=== PATIENT | male | born 1960 | race Caucasian/White ===

== ENCOUNTER 2020-02-05 18:40 | Emergency (ER) | payer SELFPAY ==
[2020-02-05 18:40] VITALS: BP 147/95; PULSE 72; RESP 16; TEMP 36.9; O2SAT 96
--- NOTE | 2020-02-05 18:47 | ED.SKABFB ---
HPI - Skin/Abscess/Foreign Bdy General Chief complaint: Skin/Abscess/Foreign Body Stated complaint: fishing lure in R upper arm Time Seen by Provider: 02/05/20 18:47 Source: patient and RN notes reviewed Mode of arrival: ambulatory Limitations: no limitations History of Present Illness HPI narrative: patient accidentally got a fishhook stuck in his right upper arm laterally. Some of his friends tried to take it out. complaint: foreign body Onset (ago): hour(s) (2) Tetanus up to date: no Location: RUE Severity: moderate Quality: dull Pain Consistency: constant Relieving factors: none Exacerbating factors: movement Context: none Associated symptoms: denies other symptoms Treatments prior to arrival: none Related Data Home Medications Medication Instructions Recorded Confirmed aspirin 81 mg tablet,delayed 81 mg PO DAILY 04/11/19 02/05/20 release atorvastatin 40 mg tablet 40 mg PO DAILY 04/11/19 02/05/20 atenolol 100 mg PO DAILY 02/05/20 02/05/20 lisinopril 40 mg PO DAILY 02/05/20 02/05/20 Allergies Allergy/AdvReac Type Severity Reaction Status Date / Time No Known Allergies Allergy Mild Verified 11/22/19 08:42 Review of Systems Review of Systems: All systems reviewed & are unremarkable except as noted in HPI and below PMFSH Past Medical History Medical History Bilateral chronic knee pain CAD (coronary artery disease) Erectile dysfunction Former cigarette smoker HTN (hypertension) Hyperlipidemia IBS (irritable bowel syndrome) Joint effusion of knee Osteoarthritis of knees, bilateral Tobacco dependence Surgical History Surgical History History of arthroscopy of left knee History of arthroscopy of right knee S/P CABG x 4 (~02/2018) Family History Family History Mother No problems noted. Father No problems noted. Social History Social History Years smoked: 25 Smoking status: Current every day smoker Tobacco type: cigarettes Additional smoking assessment comments: He is in the process of quitting. Using Chantix. Alcohol intake: never Substance use: never Additional occupation/education comments: [employer] Gender identity (if verbalized by the patient): Male Spiritual care concerns: No Exam Eyes: Conjunctivae: conjunctivae normal Pupils: Equal, round and reactive pupils present Neck: Neck: normal visual inspection Resp: Effort & Inspection: normal respiratory effort Auscultation: clear to auscultation bilaterally Cardio: Rate: regular rate Rhythm: regular rhythm GI: Auscultation: normal bowel sounds Back/Spine/Pelvis: Cervical Spine: cervical ROM normal Thoracic/Lumbar Spine: thoraco-lumbar ROM normal Skin: General skin exam: normal color Neuro: General: patient oriented x3 and moves all extremities Extrem: Right upper extremity: shoulder/upper arm tenderness ( Lateral soft tissue) and foreign body upper arm mid lateral single ( fishhook) Psych: Appearance: grossly normal and well kempt Mental Status: mental status grossly normal Affect: normal affect Attitude: cooperative Thought content: Yes Normal thought content present Course Vital Signs Vital signs: Vital Signs Temperature 36.9 C 02/05/20 18:40 Pulse Rate 72 02/05/20 18:40 Respiratory Rate 16 02/05/20 18:40 Blood Pressure 147/95 H 02/05/20 18:40 Pulse Oximetry 96 02/05/20 18:40 Temperature 36.9 C 02/05/20 18:40 Pulse Rate 72 02/05/20 18:40 Respiratory Rate 16 02/05/20 19:25 Blood Pressure 147/95 H 02/05/20 18:40 Pulse Oximetry 96 02/05/20 18:40 Procedures Foreign Body Removal Foreign Body #1: Foreign Body Removal Date: 02/05/20 Foreign Body Removal Time: 19:07 Site: right Description of foreign body: fish
[2020-02-05] MEDS: TETANUS,DIPHTHERIA,AC PERTUSSIS ADULT 0.5 ML (ADACEL) IM (18:53)
[2020-02-05] MEDS: CEPHALEXIN 500 MG CAPSULE PO (19:18)
[2020-02-05 19:25] VITALS: RESP 16
== END 2020-02-05 19:25 | disposition home or self-care (01) ==
PROVIDERS: Emergency Provider Emergency Medicine; PCP Family Medicine
DX: S40.851A Superficial foreign body of right upper arm, initial encounter (principal)
CPT/HCPCS: 90471; 90715; 99283; A9270

== ENCOUNTER 2020-09-03 10:50 | Outpatient (CLI) | payer BC, SELFPAY ==
[2020-09-05 19:38] LABS: PSA, Free 0.15 ng/mL; PSA, Total 0.4 ng/mL (<=4.0)
== END 2020-09-03 10:51 | disposition home or self-care (01) ==
LOC: CHSLAB 10:52
PROVIDERS: PCP Family Medicine; Visit Provider Surgery
DX: R30.9 Painful micturition, unspecified (principal); Z98.890 Other specified postprocedural states; Z90.79 Acquired absence of other genital organ(s)
CPT/HCPCS: 36415; 84153; 84154

== ENCOUNTER 2020-09-04 13:18 | Outpatient (RCR) | payer BC, SELFPAY ==
--- NOTE | 2020-09-04 13:15 | PTOPEVAL ---
Thank you for referring Sidra Huitron to [facility].? The patient is scheduled to be seen for therapy? __2__x/week for 12 weeks. Please review, sign, date and return this plan of care SANTIAGO. I agree with and certify that the following plan of care is medically necessary. Referring Physician Date Admitting Provider: Attending Provider: Grady Worrell, Referring Provider: *PT Outpatient Evaluation Start: 09/04/20 12:25 Freq: Status: Active Protocol: Document 09/04/20 12:25 JAN (Rec: 09/04/20 13:13 JAN [id number]) Therapy Assessment Status Assessment Status Assessment Status Evaluation Evaluation Information Problem Diagnosis left TKA Onset 08/13/20 Subjective Information Pt. reports that he underwent Query Text:As Reported By Patient/ left TKA on 08/13/20. He states Family that he returned home the next day. He states that he has not been doing any therapy , with exception of exercises that he got in the hospital. He reports that he does have pain espeically with activty. He states that current pain is 5/10. 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 Pain Assessment Pain Scale Pain Scale Used Numeric (1 - 10) Self Report Pain Assessment Left Knee(s) Reported Pain Level 5 Pain Description Aching Pain Frequency Continuous Pain Score Pain Score 5: Self Report Interventions Used Interventions Used By Clinicians Exercise Lower Extremity Range of Motion General Lower Extremity Range of Motion Gross Lower Extremity Range of Motion 2-90 left knee AROM Comments Lower Extremity Muscle Strength Testing General Lower Extremity Strength Gross Lower Extremity Strength right hip flexion 5/5 left hip flexion 4/5 right knee flexion 5/5 left knee flexion 4/5 right knee extension 5/5 left knee extension 4/5 Extremity Circumference Assessment Circumference Assessment Location Left Body Part Knee Site Descriptor ([place]) joint line Circumference (cm) 52 Noninvolved Side Circumference (cm) 47 Gait Assessment Gait Assessment Additional Ambulation Comments Pt. ambulates
--- NOTE | 2020-10-31 13:33 | PCPTNOTE ---
Mr. Huitron attended a total of 3 treatment sessions from 09/04/20 to 09/13/20. He has failed to return to the clinic and will be discharged from our care at this time. Daniel La MPT
== END 2020-09-13 09:44 | disposition home or self-care (01) ==
LOC: CHSPT 13:18
PROVIDERS: Visit Provider Orthopaedic Surgery
DX: Z96.652 Presence of left artificial knee joint (principal)
CPT/HCPCS: 97110; 97161

== ENCOUNTER 2020-10-12 07:25 | Outpatient (CLI) | payer BC, SELFPAY ==
--- NOTE | ~2020-10-12 | MR_ITS ---
EXAMINATION: MR cervical spine wo con DATE: 10/12/2020 08:50 INDICATION: Cervical radiculopathy. TECHNIQUE: Magnetic resonance imaging (MRI) of the cervical spine was performed without intravenous c ontrast. Sequences included sagittal T2-weighted FSE, sagittal STIR FSE, sagittal T2-weighted FS FSE, sagittal T1-weighted FSE, axial MERGE, and axial T2-weighted FSE. COMPARISON: None FINDINGS: There is 6 degrees levocurvature of cervical spine. Vertebral body heights are normal. Ther e is 2 mm anterolisthesis of C2 on C3 and 3 mm anterolisthesis of C4 on C5 and C7 on T1. There are ch anges of anterior fusion procedure at C5-C6 with healed interbody bone graft and anterior plate and s crews. There is moderately decreased disc at C3-C4 and mildly decreased disc height at C7-T1. The fol lowing disc levels are specifically discussed: C2-C3: The disc does not extend beyond the endplate margin. There is no uncovertebral joint osteoarth ritis. There is severe bilateral facet joint osteoarthritis. There is mild bilateral neural foraminal stenosis. There is no central canal stenosis. C3-C4: The disc is bulging. There is severe bilateral uncovertebral joint osteoarthritis. There is se alan right and mild left facet joint osteoarthritis. There is moderate bilateral neural foraminal tara nosis. There is mild central canal stenosis with ventral indentation of spinal cord. C4-C5: The disc does not extend beyond the endplate margin. There is severe bilateral uncovertebral j oint osteoarthritis. There is severe bilateral facet joint osteoarthritis. There is moderate bilatera l neural foraminal stenosis. There is mild central canal stenosis. C5-C6: There is mild bilateral uncovertebral joint hypertrophy. There is mild left facet joint hypert rophy. There is mild left neural foraminal stenosis. There is no central canal stenosis. C6-C7: The disc is bulging. There is mild right and moderate left uncovertebral joint osteoarthritis. There is mild bilateral facet joint osteoarthritis. There is mild right and moderate left neural for aminal stenosis. There is mild central canal stenosis. C7-T1: The disc is bulging. There is mild right and moderate left uncovertebral joint osteoarthritis. There is severe bilateral facet joint osteoarthritis. There is moderate bilateral neural foraminal s tenosis. There is mild central canal stenosis. IMPRESSION: 1. Moderate cervical spondylosis. 2. Anterior fusion procedure at C5-C6. Reviewed, dictated and finalized at location A.
== END 2020-10-12 07:26 | disposition home or self-care (01) ==
LOC: CHSIMG 07:27
PROVIDERS: PCP Family Medicine; Visit Provider Family Medicine
DX: M54.12 Radiculopathy, cervical region (principal); M54.2 Cervicalgia
CPT/HCPCS: 72141

== ENCOUNTER 2020-10-26 09:41 | Outpatient (CLI) | payer BC, SELFPAY ==
--- NOTE | ~2020-10-26 | MR_ITS ---
EXAMINATION: MR lumbar spine wo con DATE: 10/26/2020 10:38 INDICATION: Lumbago. TECHNIQUE: Magnetic resonance imaging (MRI) of the lumbar spine was performed without intravenous con trast. Sequences included sagittal T2-weighted FSE, sagittal T2-weighted FS FSE, sagittal T1-weighted FSE, and axial T2-weighted FSE. COMPARISON: None FINDINGS: There is 9 degrees levocurvature of lumbar spine. There is 4 mm retrolisthesis of L3 on L4 and 4 mm anterolisthesis of L4 on L5 and L5 on S1. Vertebral body heights are normal. There is mildly decreased disc height at L2-L3, severely decreased disc height at L3-L4, mildly decreased disc heigh t at L4-L5, and moderately decreased disc height at L5-S1. The distal spinal cord signal intensity is normal. The conus medullaris is at L1-L2. There is 11 mm cyst in right kidney. The following disc le vels are specifically discussed: L1-L2: The disc does not extend beyond the endplate margin. There is severe right and moderate left f acet joint osteoarthritis. There is no neural foraminal stenosis. There is no central canal stenosis. L2-L3: The disc is bulging and has an annular fissure. There is mild bilateral facet joint osteoarthr itis. There is moderate bilateral neural foraminal stenosis. There is mild central canal stenosis. L3-L4: The disc is bulging with superimposed right subarticular zone extrusion with 16 mm inferior ex tension and mass effect on right L4 nerve root in right lateral recess. There is severe bilateral fac et joint osteoarthritis. There is moderate bilateral neural foraminal stenosis. There is moderate merced tral canal stenosis. L4-L5: The disc is bulging and has an annular fissure. There is severe bilateral facet joint osteoart hritis. There is moderate bilateral neural foraminal stenosis. There is moderate central canal stenos is. L5-S1: The disc is bulging and has an annular fissure. There is severe bilateral facet joint osteoart hritis. There is moderate bilateral neural foraminal stenosis. There is mild central canal stenosis. IMPRESSION: 1. Severe lumbar spondylosis. Reviewed, dictated and finalized at location B.
== END 2020-10-26 09:42 | disposition home or self-care (01) ==
LOC: CHSIMG 09:43
PROVIDERS: PCP Family Medicine; Visit Provider Nurse Practitioner Family
DX: M54.5 Low back pain (principal); M54.16 Radiculopathy, lumbar region
CPT/HCPCS: 72148

== ENCOUNTER 2020-11-23 13:01 | Emergency (ER) | payer BC, SELFPAY ==
--- NOTE | 2020-11-23 13:07 | ED.EXTPRO ---
HPI - Extremity Problem General Chief complaint: Extremity Injury, Lower Stated complaint: R knee injury Related Data Home Medications Medication Instructions Recorded Confirmed aspirin 81 mg tablet,delayed 81 mg PO DAILY 04/11/19 10/04/20 release atorvastatin 40 mg tablet 40 mg PO DAILY 04/11/19 10/04/20 metoprolol succinate 50 mg 50 mg PO DAILY 02/26/20 10/04/20 tablet,extended release 24 hr oxycodone-acetaminophen 5 mg-325 1 tablet PO Q6H PRN tablet 08/28/20 10/04/20 mg tablet celecoxib 100 mg capsule 100 mg PO DAILY 08/30/20 10/04/20 Allergies Allergy/AdvReac Type Severity Reaction Status Date / Time No Known Allergies Allergy Mild Verified 10/04/20 14:52 [facility] Past Medical History Medical History Bilateral chronic knee pain CAD (coronary artery disease) Cervical pain Cervical radiculopathy Erectile dysfunction Former cigarette smoker HTN (hypertension) Hyperlipidemia IBS (irritable bowel syndrome) Joint effusion of knee Osteoarthritis of knees, bilateral RLQ abdominal pain Sciatica Tobacco dependence Surgical History Surgical History History of arthroscopy of left knee History of arthroscopy of right knee Right inguinal hernia S/P CABG x 4 (~02/2018) Status post cervical discectomy Family History Family History Mother No problems noted. Father Acute myocardial infarction Sibling CAD (coronary artery disease) Social History Social History Smoking packs per day: 1.5 Smoking cigarettes per day: 30.0 Years smoked: 25 Smoking pack-years: 37.50 Smoking status: Former smoker Tobacco type: cigarettes Additional smoking assessment comments: He is in the process of quitting. Using Chantix. Alcohol intake: never Substance use: never Additional occupation/education comments: [employer] Gender identity (if verbalized by the patient): Male Spiritual care concerns: No Discharge Plan Discharge Prescriptions: No Action celecoxib [Celebrex] 100 mg capsule 100 mg PO DAILY RF: 0 aspirin [Adult Low Dose Aspirin] 81 mg tablet,delayed release (DR/EC) 81 mg PO DAILY RF: 0 atorvastatin 40 mg tablet 40 mg PO DAILY RF: 0 oxycodone-acetaminophen 5-325 mg tablet 1 tablet PO Q6H PRNRF: 0 metoprolol succinate 50 mg tablet extended release 24 hr 50 mg PO DAILY RF: 0 diclofenac sodium 75 mg tablet,delayed release (DR/EC) 75 mg PO BID Qty: 60 RF: 3 lisinopril 20 mg tablet See Rx Instructions .ROUTE .COMPLEX Qty: 90 RF: 1 prednisone 20 mg tablet 40 mg PO DAILY Qty: 10 RF: 0 tadalafil 20 mg tablet 20 mg PO DAILY PRN (Reason: sexual activity) Qty: 10 RF: 3
--- NOTE | 2020-11-23 13:27 | ED.LOWEXIN ---
HPI - Extremity Injury (Lower) General Chief Complaint: Extremity Injury, Lower Stated Complaint: R knee injury Time Seen by Provider: 11/23/20 13:27 Source: patient and RN notes reviewed Mode of arrival: ambulatory Limitations: no limitations History of Present Illness complaint: knee injury Onset (ago): hour(s) (2) Injury: Right: knee Type of Injury: inversion Place: work Severity: severe Severity scale (1-10): 8 Relieving factors: nothing Exacerbating factors: weight bearing, movement and palpation Context: walking Associated symptoms: swelling, able to partially bear weight and ambulatory (limping) Other symptoms: none Related Data Home Medications Medication Instructions Recorded Confirmed aspirin 81 mg tablet,delayed 81 mg PO DAILY 04/11/19 11/23/20 release atorvastatin 40 mg tablet 40 mg PO DAILY 04/11/19 11/23/20 celecoxib 100 mg capsule 100 mg PO DAILY 08/30/20 11/23/20 lisinopril 20 mg PO DAILY 11/23/20 Allergies Allergy/AdvReac Type Severity Reaction Status Date / Time No Known Allergies Allergy Mild Verified 10/04/20 14:52 Review of Systems Review of Systems: All systems reviewed & are unremarkable except as noted in HPI and below PMFSH Past Medical History Medical History Bilateral chronic knee pain CAD (coronary artery disease) Cervical pain Cervical radiculopathy Erectile dysfunction Former cigarette smoker HTN (hypertension) Hyperlipidemia IBS (irritable bowel syndrome) Joint effusion of knee Osteoarthritis of knees, bilateral RLQ abdominal pain Sciatica Tobacco dependence Surgical History Surgical History History of arthroscopy of left knee History of arthroscopy of right knee Right inguinal hernia S/P CABG x 4 (~02/2018) Status post cervical discectomy Family History Family History Mother No problems noted. Father Acute myocardial infarction Sibling CAD (coronary artery disease) Social History Social History Smoking packs per day: 1.5 Smoking cigarettes per day: 30.0 Years smoked: 25 Smoking pack-years: 37.50 Smoking status: Former smoker Tobacco type: cigarettes Additional smoking assessment comments: He is in the process of quitting. Using Chantix. Alcohol intake: never Substance use: never Additional occupation/education comments: [employer] Gender identity (if verbalized by the patient): Male Spiritual care concerns: No Exam Const: General: healthy appearing and no acute distress Nutritional Appearance: well nourished Orientation/consciousness: patient oriented x3 HENMT: Head: normal to inspection Ears: external ears normal Eyes: General: appearance normal, both eyes and all related structures Conjunctivae: conjunctivae normal Pupils: Equal, round and reactive pupils present EOM: EOMs intact bilaterally Neck: Neck: normal visual inspection Resp: Effort & Inspection: normal respiratory effort Auscultation: clear to auscultation bilaterally Cardio: Rate: regular rate Rhythm: regular rhythm GI: GI Palp: Yes Soft to palpation and No Tenderness to palpation present (GI) Auscultation: normal bowel sounds Back/Spine/Pelvis: Cervical Spine: cervical ROM normal Thoracic/Lumbar Spine: thoraco-lumbar ROM normal Skin: General skin exam: normal color Rashes: no rashes Neuro: General: patient oriented x3, moves all extremities and no focal motor deficits Speech: normal speech Extrem: Right lower extremity: knee Details: tenderness Location: of the medial joint line, swelling Location: of the proximal fibula, knee ligament exam normal Details: anterior drawer test normal, valgus stress test normal, varus stress test normal and Luis?s test normal, Lorena's Test Details: positive medially and crepitus; no unusual
[2020-11-23 13:30] VITALS: BP 146/91; PULSE 74; RESP 20; TEMP 36.9; O2SAT 97
[2020-11-23] MEDS: LIDOCAINE HCL 1% LOCAL INJ 20 ML VIAL 5 ML XX (13:51)
[2020-11-23] MEDS: TRIAMCINOLONE ACET INJ 40 MG/ML VIAL I-ARTICULR (13:51)
[2020-11-23 14:06] VITALS: BP 148/91; PULSE 74; RESP 20; TEMP 36.6; O2SAT 97
== END 2020-11-23 14:08 | disposition home or self-care (01) ==
PROVIDERS: Emergency Provider Emergency Medicine; PCP Family Medicine
DX: S83.91XA Sprain of unspecified site of right knee, initial encounter (principal); M17.11 Unilateral primary osteoarthritis, right knee
CPT/HCPCS: 20610; 96374; 99283; 99284; J3301

== ENCOUNTER 2021-01-27 15:24 | Outpatient (RCR) | payer BC, SELFPAY ==
--- NOTE | 2021-01-27 15:54 | PTOPEVAL ---
Thank you for referring Sidra Huitron to [facility].? The patient is scheduled to be seen for therapy? __2__x/week for 8 visits. Please review, sign, date and return this plan of care SANTIAGO. I agree with and certify that the following plan of care is medically necessary. Referring Physician Date Admitting Provider: Attending Provider: Grady Worrell, Referring Provider: *PT Outpatient Evaluation Start: 01/27/21 14:40 Freq: Status: Active Protocol: Document 01/27/21 15:12 JAN (Rec: 01/27/21 15:54 JAN [id number]) Therapy Assessment Status Assessment Status Assessment Status Evaluation Evaluation Information Problem Diagnosis s/p right TKA Onset 01/08/21 Subjective Information Pt. reports that he underwent Query Text:As Reported By Patient/ right TKA on 01/08/21. He Family states that he has been walking and using a cpm for exercise. He states that he has alot pain and swelling in the leg. 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 He has returned to driving short distances. He states that he is having trouble with sleeping at night. He reports that his goal is to reduce his right knee pain and reduce his pain. Prior Level of Function Activity Level (Last 3 Months) Occupation concrete work Hand Dominance Right Activity of Daily Living Ability Independent Indoor/Home Mobility Independent Community Mobility Independent Stairs Ability Independent Functional Cognition (Planning, Shopping Independent , Taking Medications) Cooking Yes Cleaning Yes Laundry Yes Shopping Yes Driving Yes Pain Assessment Timing of Pain Assessment Timing of Pain Assessment Pre-Treatment Pain Scale Pain Scale Used Numeric (1 - 10) Self Report Pain Assessment Right Knee(s) Reported Pain Level 7 Pain Description Aching Pain Score Pain Score 7: Self Report Interventions Used Interventions Used By Clinicians Compression Pump,Exercise Lower Extremity Range of Motion General Lower Extremity Range of Motion Gross Lower Extremity Range of Motion -right knee AROM 3-95 degrees Comments -left knee AROM 0-121 degrees
== END 2021-01-27 16:30 | disposition home or self-care (01) ==
LOC: CHSPT 15:24
PROVIDERS: PCP Family Medicine; Visit Provider Orthopaedic Surgery
DX: Z96.651 Presence of right artificial knee joint (principal)
CPT/HCPCS: 97110; 97161

== ENCOUNTER 2021-05-14 14:34 | Outpatient (CLI) | payer BC, SELFPAY ==
[2021-05-14 15:16] LABS: SARS-CoV-2 Ag Negative (Negative)
[2021-05-14 15:16] LABS: Influenza Control Valid (Valid)
== END 2021-05-14 14:35 | disposition home or self-care (01) ==
PROVIDERS: PCP Nurse Practitioner Family; Visit Provider Nurse Practitioner Family
DX: J06.9 Acute upper respiratory infection, unspecified (principal); Z20.822 Contact with and (suspected) exposure to COVID-19
CPT/HCPCS: 87426; 87804; C9803

== ENCOUNTER 2021-05-19 11:25 | Outpatient (CLI) | payer BC, SELFPAY ==
--- NOTE | 2021-05-19 11:41 | ECG_ITS ---
Measurements Intervals [place] Rate: 78 P: 48 MI: 173 QRS: 76 QRSD: 84 T: 69 QT: 342 QTc: 390 Interpretive Statements SINUS RHYTHM NORMAL ECG Electronically Signed On 05-19-2021 12:12:31 [employer] by Jonatan Robles D.O.
[2021-05-19 11:57] LABS: Basophils Absolute Auto 0.03 K/mm3 (0.00-0.10); Basophils Percent Auto 0.5 % (0.0-1.0); Eosinophils Absolute Auto 0.07 K/mm3 (0.02-0.50); Eosinophils Percent Auto 1.1 % (1.0-6.0); Hematocrit 35.9 % (40.0-54.0); Hemoglobin 12.5 g/dL (14.0-18.0); Immature Granulocyte Absolute 0.01 K/mm3 (0.00-0.00); Immature Granulocyte Percent A 0.2 % (0.0-0.0); Lymphocytes Absolute Auto 1.47 K/mm3 (1.10-4.50); Lymphocytes Percent Auto 24.1 % (18.0-42.0); Mean Corpuscular HGB Conc 34.8 g/dL (32.0-36.0); Mean Corpuscular Hemoglobin 30.4 pg (27.0-31.0); Mean Corpuscular Volume 87.3 fL (78.0-102.0); Mean Platelet Volume 10.1 fl (8.7-11.0); Monocytes Absolute Auto 0.47 K/mm3 (0.10-0.90); Monocytes Percent Auto 7.7 % (2.0-11.0); Neutrophils Percent Auto 66.4 % (50.0-70.0); Platelet Count Result 197 K/mm3 (150-420); Red Blood Count 4.11 M/mm3 (4.70-6.10); Red Cell Distribution Width 12.3 % (11.6-14.4); White Blood Count 6.1 K/mm3 (4.8-10.8)
[2021-05-19 12:10] LABS: Anion Gap 10 mmol/L (8-16); Blood Urea Nitrogen 22 mg/dL (7-18); Calcium 9.3 mg/dL (8.5-10.1); Carbon Dioxide 29 mmol/L (21-32); Chloride 101 mmol/L (98-108); Estimated Glomerular Filt Rate > 60; Glucose 85 mg/dL (70-99); Osmolality Calculated 292 mOsm/kg (285-295); Potassium 4.3 mmol/L (3.5-5.1); Sodium 140 mmol/L (136-145)
== END 2021-05-19 11:26 | disposition home or self-care (01) ==
LOC: CHSIMG 11:27
PROVIDERS: PCP Family Medicine; Visit Provider Family Medicine
DX: R03.0 Elevated blood-pressure reading, without diagnosis of hypertension (principal)
CPT/HCPCS: 36415; 80048; 85025; 93005

== ENCOUNTER 2021-05-20 16:41 | Emergency (ER) | payer BC, SELFPAY ==
--- NOTE | ~2021-05-20 | XR_ITS ---
XR knee RT 3V 05/20/2021 18:10 Indication: Right knee pain Procedure: 4 views right knee Comparison: Comparison to multiple prior studies sequentially, with oldest reviewed study dated 02/2010. Findings: There is a right total knee arthroplasty. Prosthesis well seated. There is a small joint ef fusion. No acute fracture or traumatic malalignment. Impression: 1: No acute fracture. 2: Small joint effusion. Reviewed, dictated and finalized at location A. [employer] Impression: 1: No acute fracture. 2: Small joint effusion.
[2021-05-20 17:00] VITALS: BP 109/60; PULSE 85; RESP 20; TEMP 36.8; O2SAT 98
--- NOTE | 2021-05-20 17:19 | ED.EXTPRO ---
HPI - Extremity Problem General Chief complaint: Extremity Problem,Nontraumatic Stated complaint: Rt knee pain Time Seen by Provider: 05/20/21 17:19 Source: patient Mode of arrival: ambulatory Limitations: no limitations History of Present Illness HPI Narrative: 60 year old man who is 4 months status post right TKA comes in today complaining of knee pain and swelling that started at work after he twisted his knee. Patient states that is painful to walk on but he has had no locking or giving way. He denies any distal numbness or tingling. He denies prior injuries to his knee. Complaint: joint swelling and joint paint Onset (ago): hour(s) (3) Pain Consistency: constant Location: right and knee Severity scale (1-10): 7 Quality: aching and sharp Radiation: none Relieving factors: rest Exacerbating factors: weight bearing, walking and palpation Associated symptoms: denies other symptoms Related Data Home Medications Medication Instructions Recorded Confirmed aspirin 81 mg tablet,delayed 81 mg PO DAILY 04/11/19 05/20/21 release atorvastatin 40 mg tablet 40 mg PO DAILY 04/11/19 05/20/21 Allergies Allergy/AdvReac Type Severity Reaction Status Date / Time No Known Allergies Allergy Mild Verified 12/27/20 09:57 Review of Systems Review of Systems: All systems reviewed & are unremarkable except as noted in HPI and below Constitutional: Constitutional: Denies chills and Denies fever(s) ENT: Denies nasal congestion and Denies sore throat Cardiovascular: Cardiovascular: Denies chest pain Respiratory: Respiratory: Denies cough and Denies dyspnea Gastrointestinal: Gastrointestinal: Denies nausea and Denies vomiting Musculoskeletal: Musculoskeletal: Reports as per HPI, Reports arthralgias and Reports joint swelling Integumentary/Breasts: Skin/Breast: Denies pruritus, Denies erythema and Denies rash Neurologic: Denies dizziness and Denies focal weakness PMFSH Past Medical History Medical History Bilateral chronic knee pain CAD (coronary artery disease) Cervical pain Cervical radiculopathy Erectile dysfunction Former cigarette smoker HTN (hypertension) Hyperlipidemia IBS (irritable bowel syndrome) Joint effusion of knee Osteoarthritis of knees, bilateral RLQ abdominal pain Sciatica Tobacco dependence Surgical History Surgical History History of arthroscopy of left knee History of arthroscopy of right knee Right inguinal hernia S/P CABG x 4 (~02/2018) Status post cervical discectomy Family History Family History Mother No problems noted. Father Acute myocardial infarction Sibling CAD (coronary artery disease) Social History Social History Smoking packs per day: 1.5 Smoking cigarettes per day: 30.0 Years smoked: 25 Smoking pack-years: 37.50 Smoking status: Former smoker Tobacco type: cigarettes Additional smoking assessment comments: He is in the process of quitting. Using Chantix. Alcohol intake: never Substance use: never Additional occupation/education comments: [employer] Gender identity (if verbalized by the patient): Male Sexual Orientation (if Verbalized by the Patient): Straight or Heterosexual Spiritual care concerns: No Exam Const: General: healthy appearing and alert Orientation/consciousness: patient oriented x3 Limitations: no limitations Other: moderate acute distress. Eyes: Conjunctivae: conjunctivae normal Pupils: Equal, round and reactive pupils present EOM: EOMs intact bilaterally Resp: Effort & Inspection: normal respiratory effort Auscultation: clear to auscultation bilaterally, no rales, no rhonchi and no wheezes Cardio: Rate: regular rate Rhythm: regular rhythm Skin: General skin exam: normal color, no jau
[2021-05-20] MEDS: KETOROLAC (*BKC) 60 MG/2 ML VIAL IM (17:39)
[2021-05-20 18:20] VITALS: BP 110/64; PULSE 85; RESP 20; TEMP 36.8; O2SAT 98
== END 2021-05-20 18:23 | disposition home or self-care (01) ==
PROVIDERS: Emergency Provider Emergency Medicine; PCP Family Medicine
DX: S83.91XA Sprain of unspecified site of right knee, initial encounter (principal)
CPT/HCPCS: 73562; 96372; 99283; J1885

== ENCOUNTER 2021-06-23 09:04 | Emergency (ER) | payer BC, SELFPAY ==
--- NOTE | 2021-06-23 09:24 | ECG_ITS ---
Measurements Intervals [place] Rate: 76 P: 5 CT: 172 QRS: 47 QRSD: 90 T: 46 QT: 360 QTc: 405 Interpretive Statements SINUS RHYTHM BASELINE ARTIFACT- I, II, III, AVR, AVL, AVF, V5-V6 NORMAL ECG Electronically Signed On 06-23-2021 10:57:22 [employer] by Jonatan Robles D.O.
--- NOTE | 2021-06-23 09:25 | ED.GENADULT ---
HPI - General Adult General Chief complaint: Unspecified Stated complaint: High blood pressure Time Seen by Provider: 06/23/21 09:20 Source: patient Mode of arrival: ambulatory Limitations: no limitations History of Present Illness HPI narrative: 60-year-old man with history of coronary artery disease status post CABG, hypertension, dyslipidemia comes to the emergency department complaining of elevated blood pressure for last 2 days. Patient states that he would not feel well 2 days ago and so he checked his blood pressure and it was elevated. He took an extra dose of lisinopril. He took 30 mg yesterday. When he recheck his blood pressure this morning it was 194/125. In addition to his usual 20 mg of lisinopril, he took 40 additional mg this morning. He denies chest pain, shortness of breath, headache, visual changes, ankle swelling. He denies recent medicine changes. He had back surgery 2 months ago. Onset (ago): day(s) (2) Associated symptoms: denies other symptoms Related Data Home Medications Medication Instructions Recorded Confirmed aspirin 81 mg tablet,delayed 81 mg PO DAILY 04/11/19 06/23/21 release celecoxib 100 mg PO DAILY 06/23/21 06/23/21 lisinopril 20 mg PO DAILY 06/23/21 06/23/21 Allergies Allergy/AdvReac Type Severity Reaction Status Date / Time No Known Allergies Allergy Mild Verified 12/27/20 09:57 Review of Systems Review of Systems: All systems reviewed & are unremarkable except as noted in HPI and below Constitutional: Constitutional: Denies fever(s) Eyes: Eyes: Denies change in vision ENT: Denies nasal congestion and Denies sore throat Cardiovascular: Cardiovascular: Denies chest pain and Denies leg edema Respiratory: Respiratory: Denies cough and Denies dyspnea Neurologic: Denies vertigo, Denies dizziness, Denies syncope and Denies weakness [facility] Past Medical History Medical History Bilateral chronic knee pain CAD (coronary artery disease) Cervical pain Cervical radiculopathy Erectile dysfunction Former cigarette smoker HTN (hypertension) Hyperlipidemia IBS (irritable bowel syndrome) Joint effusion of knee Osteoarthritis of knees, bilateral RLQ abdominal pain Sciatica Tobacco dependence Surgical History Surgical History History of arthroscopy of left knee History of arthroscopy of right knee Right inguinal hernia S/P CABG x 4 (~02/2018) Status post cervical discectomy Family History Family History Mother No problems noted. Father Acute myocardial infarction Sibling CAD (coronary artery disease) Social History Social History Smoking packs per day: 1.5 Smoking cigarettes per day: 30.0 Years smoked: 25 Smoking pack-years: 37.50 Smoking status: Former smoker Tobacco type: cigarettes Additional smoking assessment comments: He is in the process of quitting. Using Chantix. Alcohol intake: never Substance use: never Additional occupation/education comments: [employer] Gender identity (if verbalized by the patient): Male Sexual Orientation (if Verbalized by the Patient): Straight or Heterosexual Spiritual care concerns: No Exam Const: General: cooperative, healthy appearing, comfortable, no acute distress and well developed Orientation/consciousness: patient oriented x3 HENMT: Head: normal to inspection, normocephalic and atraumatic Mouth: Yes Normal oral and palatal mucosa present Throat: posterior oropharynx normal Resp: Effort & Inspection: normal respiratory effort, able to speak in complete sentences, not labored and no respiratory distress Auscultation: clear to auscultation bilaterally Skin: General skin exam: normal color and no rashes or lesions noted Neuro: General: gait normal, tone normal and
[2021-06-23 09:28] VITALS: BP 191/93; PULSE 97; RESP 20; TEMP 36.1; O2SAT 97
[2021-06-23 09:45] VITALS: BP 152/93; PULSE 84; RESP 20; O2SAT 97
[2021-06-23 09:45] LABS: Basophils Absolute Auto 0.04 K/mm3 (0.00-0.10); Basophils Percent Auto 0.7 % (0.0-1.0); Eosinophils Absolute Auto 0.11 K/mm3 (0.02-0.50); Eosinophils Percent Auto 1.8 % (1.0-6.0); Hematocrit 39.8 % (40.0-54.0); Immature Granulocyte Absolute 0.02 K/mm3 (0.00-0.00); Immature Granulocyte Percent A 0.3 % (0.0-0.0); Lymphocytes Absolute Auto 1.46 K/mm3 (1.10-4.50); Lymphocytes Percent Auto 24.1 % (18.0-42.0); Mean Corpuscular HGB Conc 32.7 g/dL (32.0-36.0); Mean Corpuscular Hemoglobin 29.9 pg (27.0-31.0); Mean Corpuscular Volume 91.5 fL (78.0-102.0); Mean Platelet Volume 10.1 fl (8.7-11.0); Monocytes Absolute Auto 0.45 K/mm3 (0.10-0.90); Monocytes Percent Auto 7.4 % (2.0-11.0); Neutrophils Percent Auto 65.7 % (50.0-70.0); Platelet Count Result 196 K/mm3 (150-420); Red Blood Count 4.35 M/mm3 (4.70-6.10); Red Cell Distribution Width 12.8 % (11.6-14.4); White Blood Count 6.1 K/mm3 (4.8-10.8)
[2021-06-23 10:02] LABS: Alanine Aminotransferase 34 U/L (16-63); Albumin Level 3.9 g/dL (3.4-5.0); Alkaline Phosphatase 129 U/L (46-116); Anion Gap 8 mmol/L (8-16); Aspartate Amino Transferase 18 U/L (15-37); Bilirubin,Total 0.4 mg/dL (0.00-1.00); Blood Urea Nitrogen 21 mg/dL (7-18); Calcium 9.2 mg/dL (8.5-10.1); Carbon Dioxide 27 mmol/L (21-32); Chloride 100 mmol/L (98-108); Estimated CRCL calculation 76 ml/min; Estimated Glomerular Filt Rate > 60; Glucose 121 mg/dL (70-99); Osmolality Calculated 284 mOsm/kg (285-295); Sodium 135 mmol/L (136-145); Total Protein 8.3 g/dL (6.4-8.2)
[2021-06-23 10:15] VITALS: BP 160/99; PULSE 76; RESP 20; O2SAT 99
[2021-06-23 11:47] VITALS: BP 163/100; PULSE 78; RESP 20; TEMP 36.7; O2SAT 98
== END 2021-06-23 11:53 | disposition home or self-care (01) ==
PROVIDERS: Emergency Provider Emergency Medicine; PCP Family Medicine
DX: I10 Essential (primary) hypertension (principal)
CPT/HCPCS: 36415; 80053; 84484; 85025; 93005; 99283; 99284

== ENCOUNTER 2021-11-14 16:32 | Emergency (ER) | payer BC, SELFPAY ==
--- NOTE | 2021-11-14 18:38 | PC.NURSE ---
pt registered at 1632, at 1640 noted pt out in parking lot walking around with cell phone in the air, at 1642 pt got in personal vehicle and departed facility
== END 2021-11-14 16:42 | disposition left against medical advice (07) ==
LOC: CHSED 16:33
PROVIDERS: Emergency Provider Family Medicine; PCP Family Medicine
DX: Z53.21 Procedure and treatment not carried out due to patient leaving prior to being seen by health care provider (principal)
CPT/HCPCS: 99199

== ENCOUNTER 2021-11-15 10:51 | Emergency (ER) | payer BC, SELFPAY ==
--- NOTE | 2021-11-15 11:17 | ED.ANIMALBIT ---
HPI - Animal Bite General Chief Complaint: Animal Bite Stated Complaint: dog bite Time Seen by Provider: 11/15/21 11:17 Source: patient and RN notes reviewed History of Present Illness HPI narrative: Patient is a 61-year-old male who presents the urgent care with complaints of a dog bite to the upper right thigh. Patient states that he was bit yesterday by a neighbors dog who stated that the dog was up-to-date. Patient is not up-to-date on his tetanus shot. States that his daughter was concerned that he needed to be placed on an antibiotic. Patient states he has been using Neosporin on the area. Denies of any fevers, nausea or vomiting. No other acute complaints. No acute distress noted. Patient aware of the plan of care. Some parts of this dictation were generated by voice recognition software and may contain typographical and/or grammatical inaccuracies. Related Data Home Medications Medication Instructions Recorded Confirmed aspirin 81 mg tablet,delayed 81 mg PO DAILY 04/11/19 11/15/21 release (Adult Low Dose Aspirin) lisinopril 20 mg tablet 20 mg PO BID 07/01/21 11/15/21 nitroglycerin 0.4 mg sublingual 0.4 mg sublingual Q5M PRN Chest 07/16/21 11/15/21 tablet Pain celecoxib 100 mg capsule 100 mg PO DAILY 10/16/21 11/15/21 amlodipine 10 mg tablet 1 tablet PO DAILY 11/15/21 11/15/21 buprenorphine 8 mg-naloxone 2 mg 1 film sublingual 11/15/21 sublingual film Allergies Allergy/AdvReac Type Severity Reaction Status Date / Time No Known Allergies Allergy Mild Verified 11/15/21 11:39 Review of Systems Review of Systems: CONSTITUTIONAL: Denies fever, chills, or sweats. EYES: Denies visual changes, redness, or discharge. ENT: Denies rhinorrhea, congestion, sore throat, or otalgia. CARDIOVASCULAR: Denies chest pain, palpitations, or edema. RESPIRATORY: Denies cough or dyspnea. GASTROINTESTINAL: Denies abdominal pain, nausea, vomiting, or diarrhea. GENITOURINARY: Denies dysuria or hematuria. SKIN: Reports of a dog bite to the right inner thigh MUSCULOSKELETAL: Denies back pain, joint pain, or myalgia. NEUROLOGIC: Denies headache, numbness, or weakness. All other systems reviewed are negative, except as documented in HPI. [facility] Past Medical History Medical History Bilateral chronic knee pain CAD (coronary artery disease) Cervical pain Cervical radiculopathy Erectile dysfunction Former cigarette smoker HTN (hypertension) Hyperlipidemia IBS (irritable bowel syndrome) Joint effusion of knee Osteoarthritis of knees, bilateral RLQ abdominal pain Sciatica Tobacco dependence Surgical History Surgical History History of arthroscopy of left knee History of arthroscopy of right knee Right inguinal hernia S/P CABG x 4 (~02/2018) Status post cervical discectomy Family History Family History Mother No problems noted. Father Acute myocardial infarction Sibling CAD (coronary artery disease) Social History Social History Smoking packs per day: 1.5 Smoking cigarettes per day: 30.0 Years smoked: 25 Smoking pack-years: 37.50 Smoking status: Former smoker Tobacco type: cigarettes Additional smoking assessment comments: He is in the process of quitting. Using Chantix. Alcohol intake: never Substance use: never Additional occupation/education comments: [employer] Gender identity (if verbalized by the patient): Male Sexual Orientation (if Verbalized by the Patient): Straight or Heterosexual Spiritual care concerns: No Comments At the time of my signature, I reviewed and agree with the nursing past medical, surgical, social, and family history. There is no relevant family history pertinent to the patient complaint. Exam Narrative: GENERAL: This is a well-nourished, well-devel
[2021-11-15 11:26] VITALS: BP 115/84; PULSE 80; RESP 16; TEMP 37.2; O2SAT 99
[2021-11-15] MEDS: TETANUS,DIPHTHERIA,AC PERTUSSIS ADULT (0.5 ML) BOOSTRIX IM (11:48)
== END 2021-11-15 12:08 | disposition home or self-care (01) ==
PROVIDERS: Emergency Provider Nurse Practitioner Family; PCP Family Medicine
DX: S71.131A Puncture wound without foreign body, right thigh, initial encounter (principal); W54.0XXA Bitten by dog, initial encounter; Z23 Encounter for immunization; I25.10 Atherosclerotic heart disease of native coronary artery without angina pectoris; I10 Essential (primary) hypertension; E78.5 Hyperlipidemia, unspecified; M17.0 Bilateral primary osteoarthritis of knee
CPT/HCPCS: 90471; 90715; 99213; G0463

== ENCOUNTER 2021-12-09 13:50 | Outpatient (CLI) | payer BC, SELFPAY ==
[2021-12-09 14:41] LABS: INR 1.2; Prothrombin Time 12.5 Seconds (9.50-12.10)
[2021-12-12 07:05] LABS: Hepatitis A Antibody Total Nonreactive (Nonreactive); Hepatitis B Surface Antibody Nonreactive (Nonreactive)
[2021-12-12 16:36] LABS: ALT 18 U/L (9-46); Alpha-2-Macroglobulin 172 mg/dL (106-279); Apolipoprotein A1 109 mg/dL (94-176); Fibrosis Score 0.24; Fibrosis Stage F0-F1; GGT 13 U/L (3-85); Haptoglobin 121 mg/dL (43-212); Necroinflammat Act Grade A0; Total Bilirubin 0.5 mg/dL (0.2-1.2)
[2021-12-13 12:36] LABS: Hepatitis C Viral RNA PCR 152000 IU/mL
[2021-12-15 16:08] LABS: HCV Genotype, LiPA 2
== END 2021-12-09 13:51 | disposition home or self-care (01) ==
LOC: CHSLAB 13:51
PROVIDERS: PCP Family Medicine; Visit Provider Nurse Practitioner
DX: B19.20 Unspecified viral hepatitis C without hepatic coma (principal)
CPT/HCPCS: 36415; 81596; 85610; 86706; 86708; 87522

== ENCOUNTER 2022-01-02 09:49 | Emergency (ER) | payer BC, SELFPAY ==
[2022-01-02 10:00] VITALS: BP 148/101; PULSE 81; RESP 16; TEMP 37; O2SAT 98
--- NOTE | 2022-01-02 10:14 | ED.WOUNDLAC ---
HPI - Wound/Laceration General Chief Complaint: Wound/Laceration Stated Complaint: CUT ON ARM Time Seen by Provider: 01/02/22 09:53 Source: patient and RN notes reviewed Mode of arrival: ambulatory Limitations: no limitations History of Present Illness HPI narrative: left elbow 1.2 cm laceration with good approximation x 24 hrs. Onset (ago): day(s) (1) Extremity Location: Left: elbow Place: home Context: accidental Associated symptoms: none Treatments prior to arrival: bandage Related Data Home Medications Medication Instructions Recorded Confirmed aspirin 81 mg tablet,delayed 81 mg PO DAILY 04/11/19 01/02/22 release (Adult Low Dose Aspirin) lisinopril 20 mg tablet 20 mg PO BID 07/01/21 01/02/22 nitroglycerin 0.4 mg sublingual 0.4 mg sublingual Q5M PRN Chest 07/16/21 01/02/22 tablet Pain celecoxib 100 mg capsule 100 mg PO DAILY 10/16/21 01/02/22 atorvastatin 40 mg tablet 40 mg PO DAILY 12/26/21 01/02/22 Allergies Allergy/AdvReac Type Severity Reaction Status Date / Time No Known Allergies Allergy Mild Verified 01/07/22 07:39 Review of Systems Review of Systems: All systems reviewed & are unremarkable except as noted in HPI and below Constitutional: Constitutional: Reports no additional constitutional complaints Eyes: Eyes: Reports no additional eye complaints ENT: Reports system reviewed and no additional complaints, except as documented Cardiovascular: Cardiovascular: Reports no additional cardiovascular complaints Respiratory: Respiratory: Reports no additional respiratory complaints Gastrointestinal: Gastrointestinal: Reports no additional gastrointestinal complaints Musculoskeletal: Musculoskeletal: Reports no additional musculoskeletal complaints Comments: left elbow laceration Integumentary/Breasts: Skin/Breast: Reports system reviewed and no additional complaints, except as docu Neurologic: Reports system reviewed and no additional complaints, except as documented Psychiatric: Psychiatric: Reports no additional psychiatric complaints Endocrine: Endocrine: Reports no additional endocrine complaints Hematologic/Lymphatic: Hematologic/Lymphatic: Reports no additional hematologic/lymphatic complaints Allergic/Immunologic: Allergic/Immunologic: Reports no additional allergic/immunologic complaints PMFSH Past Medical History Medical History Bilateral chronic knee pain CAD (coronary artery disease) Cervical pain Cervical radiculopathy Erectile dysfunction Former cigarette smoker HTN (hypertension) Hyperlipidemia IBS (irritable bowel syndrome) Irritable bowel syndrome with constipation Joint effusion of knee Laceration of left elbow Osteoarthritis of knees, bilateral RLQ abdominal pain Sciatica Tobacco dependence Surgical History Surgical History History of arthroscopy of left knee History of arthroscopy of right knee Right inguinal hernia S/P CABG x 4 (~02/2018) Status post cervical discectomy Family History Family History Mother No problems noted. Father Acute myocardial infarction Sibling CAD (coronary artery disease) Social History Social History Smoking packs per day: 1.5 Smoking cigarettes per day: 30.0 Years smoked: 25 Smoking pack-years: 37.50 Smoking status: Former smoker Tobacco type: cigarettes Additional smoking assessment comments: He is in the process of quitting. Using Chantix. Alcohol intake: never Substance use: never Additional occupation/education comments: [employer] Gender identity (if verbalized by the patient): Male Sexual Orientation (if Verbalized by the Patient): Straight or Heterosexual Spiritual care concerns: No Exam Const: General: healthy appearing and no acute distress Nutri
--- NOTE | 2022-01-02 10:28 | PC.NURSE ---
patient refused xray
[2022-01-02 10:43] VITALS: BP 148/101; PULSE 81; RESP 16; TEMP 37; O2SAT 98
== END 2022-01-02 10:46 | disposition home or self-care (01) ==
PROVIDERS: Emergency Provider Emergency Medicine; PCP Family Medicine
DX: S51.012A Laceration without foreign body of left elbow, initial encounter (principal); W45.8XXA Other foreign body or object entering through skin, initial encounter
CPT/HCPCS: 99282

== ENCOUNTER 2022-01-13 08:55 | Outpatient (CLI) | payer BC, SELFPAY ==
--- NOTE | ~2022-01-13 | MM_ITS ---
EXAMINATION: MM diagnostic mammo unilat LT HISTORY: Palpable lump in the subareolar left breast TECHNIQUE: Craniocaudal and mediolateral oblique views of the left breast are obtained using full fie ld digital mammography. Mediolateral oblique view of the right breast is obtained for comparison. CAD analysis was submitted and interpreted. COMPARISON: CT 02/25/2018 BREAST PARENCHYMAL COMPOSITION: The breasts are almost entirely fatty. FINDINGS: There is flame-shaped subareolar density of the left breast with an appearance consistent w ith asymmetric gynecomastia. No suspicious mass, calcification, or architectural distortion are ident ified. IMPRESSION: 1. Mammographic findings consistent with asymmetric gynecomastia of the left breast. Clinical follow- up is recommended. BI-RADS Category 2: Benign finding(s). Reviewed, dictated and finalized at location A. IMPRESSION: 1. Mammographic findings consistent with asymmetric gynecomastia of the left br east. Clinical follow-up is recommended. BI-RADS Category 2: Benign finding(s).
== END 2022-01-13 08:56 | disposition home or self-care (01) ==
LOC: CHSIMG 08:56
PROVIDERS: PCP Family Medicine; Visit Provider Family Medicine
DX: N64.4 Mastodynia (principal)
CPT/HCPCS: 77065

== ENCOUNTER 2022-04-17 16:09 | Outpatient (CLI) | payer BC, SELFPAY ==
[2022-04-17 16:24] LABS: Hematocrit 32.7 % (40.0-54.0); Mean Corpuscular HGB Conc 33.6 g/dL (32.0-36.0); Mean Corpuscular Hemoglobin 30.2 pg (27.0-31.0); Mean Corpuscular Volume 89.8 fL (78.0-102.0); Mean Platelet Volume 9.8 fl (8.7-11.0); Platelet Count Result 151 K/mm3 (150-420); Red Blood Count 3.64 M/mm3 (4.70-6.10); Red Cell Distribution Width 12.4 % (11.6-14.4); White Blood Count 4.6 K/mm3 (4.8-10.8)
[2022-04-17 16:42] LABS: Alanine Aminotransferase 19 U/L (16-63); Albumin Level 3.5 g/dL (3.4-5.0); Alkaline Phosphatase 133 U/L (46-116); Anion Gap 6 mmol/L (8-16); Aspartate Amino Transferase 15 U/L (15-37); Bilirubin,Total 0.3 mg/dL (0.00-1.00); Blood Urea Nitrogen 15 mg/dL (7-18); Calcium 8.5 mg/dL (8.5-10.1); Carbon Dioxide 28 mmol/L (21-32); Chloride 101 mmol/L (98-108); Estimated Glomerular Filt Rate 59; Glucose 135 mg/dL (70-99); Osmolality Calculated 282 mOsm/kg (285-295); Potassium 4.1 mmol/L (3.5-5.1); Sodium 135 mmol/L (136-145); Total Protein 7.3 g/dL (6.4-8.2)
[2022-04-21 12:58] LABS: Hepatitis C RNA, Quant PCR <15 IU/mL
== END 2022-04-17 16:10 | disposition home or self-care (01) ==
LOC: CHSLAB 16:11
PROVIDERS: PCP Family Medicine; Visit Provider Nurse Practitioner
DX: B19.20 Unspecified viral hepatitis C without hepatic coma (principal)
CPT/HCPCS: 36415; 80053; 85027; 87522

== ENCOUNTER 2022-04-23 08:58 | Outpatient (CLI) | payer BC, SELFPAY ==
[2022-04-23 09:52] LABS: Influenza A QL RT-PCR Negative (Negative); Influenza B QL RT-PCR Negative (Negative); SARS-CoV-2 RNA PCR Negative (Negative)
== END 2022-04-23 08:59 | disposition home or self-care (01) ==
LOC: CHSLAB 09:00
PROVIDERS: PCP Family Medicine; Visit Provider Family Medicine
DX: J06.9 Acute upper respiratory infection, unspecified (principal); Z20.822 Contact with and (suspected) exposure to COVID-19
CPT/HCPCS: 87636

== ENCOUNTER 2022-05-28 07:55 | Outpatient (CLI) | payer BC, SELFPAY ==
--- NOTE | ~2022-05-28 | XR_ITS ---
EXAMINATION: XR hand RT min 3V DATE: 05/28/2022 08:22 INDICATION: Right hand pain and swelling with stiffness at the third-fifth digits TECHNIQUE: Posteroanterior, oblique and lateral views of the right hand were obtained. COMPARISON: None. FINDINGS: 3 mm ulnar minus variance. Alignment is otherwise normal. No fracture. Mild polyarticular osteoarthri tis at the triscaphe, first carpometacarpal and the metacarpophalangeal and interphalangeal joints. N o erosions to suggest an inflammatory arthritis. Soft tissues are unremarkable. IMPRESSION: 1. Typical distribution of mild polyarticular osteoarthritis of the right hand. Reviewed, dictated and finalized at location L. TABLE VENDOR
[2022-05-28 08:42] LABS: CRP < 0.5 mg/dL (0.0-0.9)
[2022-05-28 09:09] LABS: Rheumatoid Factor Screen Negative (Negative)
[2022-06-09 10:07] LABS: ANA Cascade Screen Negative (Negative)
== END 2022-05-28 07:56 | disposition home or self-care (01) ==
LOC: CHSLAB 07:56
PROVIDERS: PCP Family Medicine; Visit Provider Family Medicine
DX: M79.641 Pain in right hand (principal); M19.041 Primary osteoarthritis, right hand
CPT/HCPCS: 36415; 73130; 86038; 86140; 86430

== ENCOUNTER 2024-05-15 16:20 | Outpatient (CLI) | payer BC, SELFPAY ==
[2024-05-15 16:46] LABS: Basophils Absolute Auto 0.05 K/mm3 (0.00-0.10); Basophils Percent Auto 0.6 % (0.0-1.0); Eosinophils Absolute Auto 0.04 K/mm3 (0.02-0.50); Eosinophils Percent Auto 0.5 % (1.0-6.0); Hematocrit 36.4 % (40.0-54.0); Hemoglobin 12.7 g/dL (14.0-18.0); Immature Granulocyte Absolute 0.05 K/mm3 (0.00-0.00); Immature Granulocyte Percent A 0.6 % (0.0-0.0); Lymphocytes Absolute Auto 1.82 K/mm3 (1.10-4.50); Lymphocytes Percent Auto 20.7 % (18.0-42.0); Mean Corpuscular HGB Conc 34.9 g/dL (32-36); Mean Corpuscular Volume 86.1 fL (78.0-102.0); Mean Platelet Volume 9.8 fl (8.7-11.0); Monocytes Absolute Auto 0.54 K/mm3 (0.10-0.90); Monocytes Percent Auto 6.1 % (2.0-11.0); Neutrophils Percent Auto 71.5 % (50.0-70.0); Platelet Count Result 162 K/mm3 (150-420); Red Blood Count 4.23 M/mm3 (4.70-6.10); Red Cell Distribution Width 12.2 % (11.6-14.4); White Blood Count 8.8 K/mm3 (4.8-10.8)
[2024-05-15 16:57] LABS: SARS-CoV-2 Ag Negative (Negative)
[2024-05-15 17:17] LABS: Alanine Aminotransferase 19 U/L (16-63); Albumin Level 3.8 g/dL (3.4-5.0); Alkaline Phosphatase 168 U/L (46-116); Anion Gap 6 mmol/L (4-12); Aspartate Amino Transferase 17 U/L (15-37); Bilirubin,Total 0.6 mg/dL (0.00-1.00); Blood Urea Nitrogen 16 mg/dL (7-18); Calcium 9.1 mg/dL (8.5-10.1); Carbon Dioxide 31 mmol/L (21-32); Chloride 99 mmol/L (98-108); Cholesterol 128 mg/dL (0-200); Estimated Glomerular Filt Rate > 60; Glucose 64 mg/dL (70-99); HDL Direct 45 mg/dL (40-60); LDL Cholesterol Calculated 68 mg/dL (<130); Osmolality Calculated 281 mOsm/kg (285-295); Potassium 3.6 mmol/L (3.5-5.1); Prostate Specific Antigen 0.3 ng/mL (< OR = 4.0); Sodium 136 mmol/L (136-145); Total Protein 7.3 g/dL (6.4-8.2); Triglycerides 73 mg/dL (0-150)
== END 2024-05-15 16:21 | disposition home or self-care (01) ==
LOC: CHSLAB 16:23
PROVIDERS: PCP Family Medicine; Visit Provider Nurse Practitioner
DX: I10 Essential (primary) hypertension (principal); E78.5 Hyperlipidemia, unspecified; D64.9 Anemia, unspecified; Z12.5 Encounter for screening for malignant neoplasm of prostate
CPT/HCPCS: 36415; 80053; 80061; 84153; 85025; 87426; G0103

== ENCOUNTER 2024-05-26 08:51 | Outpatient (CLI) | payer BC, SELFPAY ==
[2024-05-26 10:05] LABS: GGT 19 U/L (15-85)
[2024-05-27 14:43] LABS: Hepatitis C RNA, Quant PCR <15 NOT DETECTED IU/mL (NOT DETECTED)
== END 2024-05-26 08:52 | disposition home or self-care (01) ==
LOC: CHSLAB 08:52
PROVIDERS: PCP Family Medicine; Visit Provider Nurse Practitioner
DX: B19.20 Unspecified viral hepatitis C without hepatic coma (principal); R74.8 Abnormal levels of other serum enzymes
CPT/HCPCS: 36415; 82977; 87522

== ENCOUNTER 2025-02-02 07:22 | Outpatient (CLI) | payer BC, SELFPAY ==
--- OUTSIDE RECORDS SUMMARY | 2025-02-02 07:28 | XMS_ITS | Clinical Summary ---
Author Organization [facility] Address [address] [place] [address] Care Team Providers Care Game Technician Name Role Phone Kale García APRN, CNP Unavailable Franklyn Nielsen MD Unavailable [phone] Allergies No known active allergies Medications Varenicline Tartrate (CHANTIX STARTING ) 0.5 MG X 11 & 1 MG X 42 PO MISCIndications :Tobacco abuse Take 1 Tab by mouth 2 times daily. Take according to instructions inside package. 60 Tab 0 5 Active varenicline (CHANTIX CONTINUING MONTH ) 1 MG PO TABSIndications :Tobacco abuse Take 1 Tab by mouth 2 times daily. 60 Tab 4 5 Active alfuzosin (UROXATRAL) 10 MG PO [id number] Take 1 Tab by mouth daily (with breakfast). 30 Tab 1 5 Active sildenafil citrate (VIAGRA) 100 MG PO TABS Take 1 Tab by mouth as needed for Erectile Dysfunction. 10 Tab 6 5 Active oxyCODONE-aceta minophen 5-325 MG PO TABS Take 1-2 Tabs by mouth every 6 hours as needed for Pain. 30 Tab 0 5 Active Meloxicam 15 MG PO TABS Take 15 mg by mouth daily. Active tamsulosin (FLOMAX) 0.4 MG Capsule 5 Active Active Problems No known active problems Immunizations Immunization Administration Dates Next Due TD VACCINE 09/07/2011 Family History Medical History Relation Name Comments No Known Problems Brother 4 No Known Problems Brother 5 No Known Problems Brother 6 Heart Attack Father Stroke Mother No Known Problems Sister 7 No Known Problems Sister 8 No Known Problems Sister 9 No Known Problems Sister 10 No Known Problems Sister 11 No Known Problems Sister 12 Relation Name Status Comments Brother 1 Alive Brother 2 Alive Brother 3 Alive Brother 4 Brother 5 Brother 6 Father Mother Alive Sister 1 Alive Sister 2 Alive Sister 3 Alive Sister 4 Alive Sister 5 Alive Sister 6 Alive Sister 7 Sister 8 Sister 9 Sister 10 Sister 11 Sister 12 Social History Tobacco Use Types Packs/Day Years Used Date Smoking Tobacco: Every Day Cigarettes Last attempted to quit: 11/08/2011 Smokeless Tobacco: Former Chew Tobacco Cessation:Ready to Q uit: Yes Comments:quit in the past and restarted again Alcohol Use Standard Drinks/Week Comments No 0 (1 standard drink = 0.6 oz pur e alcohol) Sexually Active Control Partners Comments Not Currently Female Sex and Gender Information Value Date Recorded Sex Assigned at Not on file 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 Gender Identity Not on file Sexual Orientation Not on file Last Filed Vital Signs Vital Sign Reading Time Taken Comments Blood Pressure 134/95 02/06/2015 9:08 AM CDT Pulse 76 02/06/2015 9:08 AM CDT Temperature 36.8 C (98.3 F) 12/02/2014 3:14 AM CDT Respiratory Rate 18 02/06/2015 9:08 AM CDT Oxygen Saturation 98% 12/02/2014 5:50 AM CDT Inhaled Oxygen Concentration - - Weight 93 kg (205 lb) 02/06/2015 9:08 AM CDT Height 177.8 cm (5' 10) 02/06/2015 9:08 AM CDT Body Mass Index 29.41 02/06/2015 9:08 AM CDT Plan of Treatment Health Maintenance Due Date Last Done Comments Hepatitis C Virus (HCV) Screening 1960 TdaP Immunization 1960 Cologuard 11/12/2007 Colonoscopy 11/12/2007 Colorectal Cancer Screening 11/12/2007 Immunochemical Fecal Occult Blood 11/12/2007 Pneumococcal Immunization (5 0+ years) (1 of 1 - PCV) 2012 Zoster Immunization (1 of 2) 2012 SARS-COV-2 Immunization ( - season) 2024 Influenza Immunization (#1) 2025 Respiratory Syncytial Virus (RSV) Immunization (Adult) (1 - 1-dose 75+ series) 2037 DTaP/Tdap/Td Immunization Discontinued 09/07/2011 PSA Discussion Discontinued 09/17/2014 Hepatitis B Immunization Aged Out No longer eligible based on patient's age to complete this topic Human Papillomavirus (HPV) Immunization Aged Out No longer eligible b ased on patient's age to complete this topic Meningococcal Immunization (ACWY) Aged Out No longer eligible based on patient's age to complete this topic Rotavirus Immunization Aged Out No lo nger eligible based on patient's age to complete this topic Procedures Procedure Name Priority Date/Time Associated Diagnosis Comments PSA SCREEN Today 09/17/2014 3:40 PM CDT Enlarged prostate from Last 3 Months or Most Recently Relevant to Health Maintenance Results * PSA SCREEN (09/17/2014 3:40 PM CDT) PSA SCREEN, TOTAL 0.66 <4.00 ng/mL 09/17/2014 8:38 PM CDT [facility] Blood specimen (specimen) Venipuncture / Unknown 09/17/2014 3:40 PM CDT 09/17/2014 3:40 PM CDT us Maddison Celestin APRN, STUDENT SERVICES REP CHEMISTRY ORDERABLES F inal Result [facility] [address] [place] [address] from Last 3 Months or Most Recently Relevant to Health Maintenance Insurance MEDICAID [employer] [facility] HFN Advance Directives * Full Code (Latest Code Status on File) Date Activated Date Inactivated Comments 11/30/2014 10:23 AM 12/01/2014 3:40 PM Full Code: FULL ARREST: Attempt Resuscitation/CPR and use intubation and mechanical ventilation as indicated. PRE-ARREST: Use all measures to stabilize patient. Care Teams Game Technician Relationship Specialty Start Date End Date Kale García, STEAM DRIER OPERATOR, STUDENT SERVICES REP Nurse Practitioner Certified Nurse Practitioner 10/04/14 Franklyn Nielsen MD Consulting Physician Urology 10/04/14
[2025-02-02 07:37] LABS: Hematocrit 35.9 % (40.0-54.0); Hemoglobin 12.2 g/dL (14.0-18.0); Immature Granulocyte Percent A 0.2 % (0.0-0.0); Immature Platelet Fraction Pct 3.9 % (1.0-7.0); Lymphocytes Absolute Auto 1.24 K/mm3 (1.10-4.50); Mean Corpuscular HGB Conc 34.0 g/dL (32-36); Mean Corpuscular Hemoglobin 30.7 pg (27.0-31.0); Mean Corpuscular Volume 90.2 fL (78.0-102.0); Nucleated Red Blood Cells Absolute Auto 0.00 K/mm3 (0.00-0.00); Nucleated Red Blood Cells Perc 0.0 % (0-0.0); Platelet Count Result 141 K/mm3 (150-420); Red Blood Count 3.98 M/mm3 (4.70-6.10); White Blood Count 4.6 K/mm3 (4.8-10.8)
[2025-02-02 08:19] LABS: Alanine Aminotransferase 16 U/L (6-50); Albumin Level 4.2 g/dL (3.5-5.1); Alkaline Phosphatase 94 U/L (38-126); Anion Gap 10 mmol/L (4-12); Aspartate Amino Transferase 27 U/L (17-59); Bilirubin,Total 0.7 mg/dL (0.2-1.3); Blood Urea Nitrogen 18 mg/dL (9-20); Calcium 9.5 mg/dL (8.4-10.2); Carbon Dioxide 29 mmol/L (22-30); Chloride 100 mmol/L (98-107); Cholesterol 127 mg/dL (0-200); Estimated Glomerular Filt Rate > 60; Glucose 95 mg/dL (65-110); HDL Direct 45 mg/dL; Osmolality Calculated 289 mOsm/kg (285-295); Potassium 4.7 mmol/L (3.4-5.0); Sodium 139 mmol/L (137-145); Total Protein 6.9 g/dL (6.3-8.2); Triglycerides 91 mg/dL (<150)
== END 2025-02-02 07:23 | disposition home or self-care (01) ==
LOC: CHSLAB 07:24
PROVIDERS: PCP Nurse Practitioner; Visit Provider Nurse Practitioner
DX: E78.5 Hyperlipidemia, unspecified (principal); R74.8 Abnormal levels of other serum enzymes; I10 Essential (primary) hypertension; B18.2 Chronic viral hepatitis C
CPT/HCPCS: 36415; 80053; 80061; 85025; 85055; 86803